=== PATIENT | female | born 1990 | race Caucasian/White ===

== ENCOUNTER 2022-10-11 01:15 | Inpatient (IN) | payer MEDICAID ==
[~2022-10-11] VITALS: Ht 160 cm; Wt 157.9 kg
[2022-10-11 02:23] LABS: BASOPHILS % (AUTO) 0 % (0-10); EOSINOPHILS # (AUTO) 0.2 10^3/uL (0.0-0.3); EOSINOPHILS % (AUTO) 3 % (0-10); HEMATOCRIT 46 % (35-52); HEMOGLOBIN 14.8 g/dL (11.5-16.0); LYMPHOCYTES # (AUTO) 1.2 10^3/uL (1.0-4.0); LYMPHOCYTES % (AUTO) 17 % (12-44); MEAN CORPUSCULAR HEMOGLOBIN 28 pg (25-34); MEAN CORPUSCULAR HGB CONC 32 g/dL (32-36); MEAN CORPUSCULAR VOLUME 88 fL (80-99); MEAN PLATELET VOLUME 11.6 fL (9.0-12.2); MONOCYTES # (AUTO) 0.6 10^3/uL (0.0-1.0); MONOCYTES % (AUTO) 8 % (0-12); NEUTROPHILS # (AUTO) 5.1 10^3/uL (1.8-7.8); NEUTROPHILS % (AUTO) 71 % (42-75); PLATELET COUNT 184 10^3/uL (130-400); WHITE BLOOD COUNT 7.2 10^3/uL (4.3-11.0)
[2022-10-11 02:23] LABS: BILIRUBIN,URINE NEGATIVE (NEGATIVE); CLARITY,URINE CLEAR; COLOR,URINE YELLOW; GLUCOSE, URINE (UA) 3+ (NEGATIVE); KETONES,URINE NEGATIVE (NEGATIVE); LEUKOCYTE ESTERASE ,URINE NEGATIVE (NEGATIVE); NITRITE,URINE NEGATIVE (NEGATIVE); PH,URINE 5.5 (5-9); PROTEIN,URINE NEGATIVE (NEGATIVE)
[2022-10-11 02:35] LABS: PROTHROMBIN TIME PATIENT 13.5 SEC (12.2-14.7)
[2022-10-11 02:36] LABS: POTASSIUM 4.2 MMOL/L (3.6-5.0)
[2022-10-11 02:37] LABS: BACTERIA,URINE NEGATIVE /HPF; RBC,URINE 0-2 /HPF; SQUAMOUS EPITHELIAL CELL,UR 0-2 /HPF
[2022-10-11 02:37] LABS: CALCIUM 9.6 MG/DL (8.5-10.1)
[2022-10-11 02:38] LABS: YEAST,URINE FEW /HPF
[2022-10-11 02:38] LABS: TOTAL PROTEIN 7.5 GM/DL (6.4-8.2)
[2022-10-11 02:40] LABS: BILIRUBIN,TOTAL 0.3 MG/DL (0.1-1.0)
[2022-10-11 02:42] LABS: CREATININE SERUM 1.08 MG/DL (0.60-1.30)
[2022-10-11] MEDS ORDERED: inSUlin (REGULAR) HUMAN 1 UNIT/0.01 ML (CHARGE PER UNIT) IV ONE (02:45)
[2022-10-11 02:53] LABS: ERYTHROCYTE SEDIMENTATION RATE 9 MM/HR (0-20)
[2022-10-11 03:05] LABS: MAGNESIUM 2.1 MG/DL (1.6-2.4)
[2022-10-11] MEDS: NS IV 1000 ML 1,000 ML IV SCH ×5 (04:00→16:02)
--- NOTE | 2022-10-11 04:06 | ED GI ---
General Chief Complaint: Abdominal/GI Problems Stated Complaint: RECTAL BLEEDING Source of Information: Patient (SOMEWHAT LIMITED HISTORIAN) History of Present Illness Date Seen by Provider: Oct 11, 2022 Time Seen by Provider: 01:50 Initial Comments PT ARRIVES VIA POV FROM HOME PT STATES SHE HAS BEEN HAVING DIARRHEA FOR THE LAST 2-3 WEEKS, WITH AT LEAST 3-4 EPISODES A DAY TONIGHT, SHE HAD 2 EPISODES OF BLOODY DIARRHEA--BRIGHT RED BLOOD MIXED WITH DIARRHEA STOOL SHE DID HAVE SOME NAUSEA AND VOMITED X 1 TONIGHT. IS NOT NAUSEATED NOW, AND HAS NOT HAD NAUSEA OR VOMITING PRIOR TO TONIGHT PT C/O FEELING LIKE HER ABDOMEN IS BLOATED, BUT HAS NOT BEEN HAVING ABDOMINAL PAIN NO FEVER/SWEATS/CHILLS SHE ALSO C/O URINARY INCONTINENCE--DESCRIBES STRESS INCONTINENCE, AND HAS BURNING IN HER GENITAL AREA, WHICH SHE BELIEVES IS DUE TO THIS SHE HAS CONTINUED TO EAT AND DRINK USUAL SHE IS NOT ON ASPIRIN OR BLOOD THINNERS SHE TAKES 4 NAPROXEN A DAY FOR "BAD TEETH" SHE SMOKES 1 1/2 PPD, DENIES VAPING, DENIES ETOH, DENIES DRUG USE SHE HAS HAD TONSILS REMOVED, NO OTHER SURGERIES SHE DENIES ANY MEDICAL PROBLEMS, BUT HAS NOT BEEN TO A DR IN YEARS, AND DOES NOT HAVE A DR. LMP 09/16/22. NORMAL. NO CONTROL PCP: NONE Allergies and Home Medications Allergies Coded Allergies: No Known Drug Allergies (Unverified , 10/11/22) Patient Home Medication List Home Medication List Reviewed: Yes Review of Systems Review of Systems Constitutional: no symptoms reported; No chills, No diaphoresis, No dizziness, No fever EENTM: See HPI, Other ("BAD TEETH") Respiratory: No Symptoms Reported; Denies Cough, Denies Shortness of Air Cardiovascular: No Symptoms Reported; Denies Chest Pain Gastrointestinal: See HPI, Diarrhea, Nausea; Denies Poor Appetite, Denies Poor Fluid Intake; Rectal Bleeding, Vomiting Genitourinary: See HPI, Frequency, Incontinence Musculoskeletal: no symptoms reported Skin: no symptoms reported Psychiatric/Neurological: No Symptoms Reported Endocrine: Increased Thrist, Increased Urine Hematologic/Lymphatic: See HPI Past Iralcot-Rvlflw-Tjmlll Hx Patient Social History Tobacco Use?: Yes Tobacco type used: Cigarettes Smoking Status: Current Everyday Smoker Smokeless Tobacco Frequency: Current Everyday User Use of E-Cig and/or Vaping dev: No Substance use?: No Alcohol Use?: No Past Medical History Surgeries: Yes Tonsillectomy Respiratory: No Cardiac: No Neurological: No Reproductive Disorders: No Genitourinary: No Gastrointestinal: No Musculoskeletal: No Endocrine: Yes (MORBID OBESITY) HEENT: Yes ("BAD TEETH") Cancer: No Psychosocial: No Integumentary: No Blood Disorders: No Family Medical History SOCIAL HISTORY: -SMOKES 1 1/2 PPD -DENIES VAPING -DENIES ETOH USE -DENIES DRUG USE Physical Exam Vital Signs Vital Signs - First Documented 10/11/22 10/11/22 01:43 04:00 Temp 37.1 Pulse 94 Resp 14 B/P (MAP) 141/100 (114) Pulse Ox 95 O2 Delivery Room Air O2 Flow Rate 2.00 Capillary Refill : Height/Weight/BMI Height: '" Weight: lbs. oz. kg; BMI Method: General Appearance: WD/WN, no apparent distress, obese (MORBIDLY OBESE. MAL ODOROUS, COVERED IN ANIMAL HAIR AND REEKS OF CIGARETTES. ) HEENT: PERRL/EOMI, other (POOR DENTITION) Neck: normal inspection Respiratory: normal breath sounds, no respiratory distress, no accessory muscle use Cardiovascular: regular rate, rhythm, no murmur Gastrointestinal: normal bowel sounds, non tender, soft, other (LOWER ASPECT OF ABDOMEN AND PANNUS WITH DIFFUSE ERYTHEMA, WARMTH AND INDURATION. THERE ARE MULTIPLE SORES/SCABS/SCARS TO ABDOMEN, ALSO TO MONS PUBIS AREA. ) Genital/Rectal: other (THERE IS ERYTHEMA WITH ADHERENT WHITE DISCHARGE IN GENITAL AREA AND IN SKIN FOLDS--C/W CANDIDIASIS) Extremities: normal range of motion, non-tender, normal capillary refill, other (MULTIPLE SORES/SCARS/SCABS TO ARMS. ) Back: no CVA tenderness Neurologic/Psychiatric: metal tube cutter II-XII nml as tested, no motor/sensory deficits, alert, normal mood/affect, oriented x 3 Skin: normal color, warm/dry, other (SKIN CHANGES NOTED ABOVE. ) Focused Exam Sepsis Stage: Ruled Out (DOES NOT MEET CRITERIA) Possible Source: Other (GI OR SKIN/SOFT TISSUE) Lactate Level 10/11/22 06:40: Lactic Acid Level 1.42 Time of Focused Exam: 04:30 Respiratory: Normal Breath Sounds, No Accessory Muscle Use, No Respiratory Distress Cardiovascular: Regular Rate, Rhythm, No Murmur Capillary Refill: Less Than 3 Seconds Skin: normal color, warm/dry Lactic Acid Level Laboratory Tests Test 10/11/22 06:40 Lactic Acid Level 1.42 MMOL/L (0.50-2.00) Within 3hrs of presentation: Admin fluids, Admin ABX, Blood cultures prior to ABX's, Focus exam, Lactate level Progress/Results/Core Measures Results/Orders Lab Results Laboratory Tests Test 10/11/22 02:13 10/11/22 02:15 10/11/22 05:17 10/11/22 05:46 Range/Units White Blood Count 7.2 4.3-11.0 10^3/uL Red Blood Count 5.22 H 3.80-5.11 10^6/uL Hemoglobin 14.8 11.5-16.0 g/dL Hematocrit 46 35-52 % Mean Corpuscular Volume 88 80-99 fL Mean Corpuscular Hemoglobin 28 25-34 pg Mean Corpuscular Hemoglobin Concent 32 32-36 g/dL Red Cell Distribution Width 13.2 10.0-14.5 % Platelet Count 184 130-400 10^3/uL Mean Platelet Volume 11.6 9.0-12.2 fL Immature Granulocyte % (Auto) 1 % Neutrophils (%) (Auto) 71 42-75 % Lymphocytes (%) (Auto) 17 12-44 % Monocytes (%) (Auto) 8 0-12 % Eosinophils (%) (Auto) 3 0-10 % Basophils (%) (Auto) 0 0-10 % Neutrophils # (Auto) 5.1 1.8-7.8 10^3/uL Lymphocytes # (Auto) 1.2 1.0-4.0 10^3/uL Monocytes # (Auto) 0.6 0.0-1.0 10^3/uL Eosinophils # (Auto) 0.2 0.0-0.3 10^3/uL Basophils # (Auto) 0.0 0.0-0.1 10^3/uL Immature Granulocyte # (Auto) 0.1 0.0-0.1 10^3/uL Erythrocyte Sedimentation Rate 9 0-20 MM/HR Prothrombin Time 13.5 12.2-14.7 SEC INR Comment 1.0 0.8-1.4 Activated Partial Thromboplast Time 31 24-35 SEC Sodium Level 134 L 135-145 MMOL/L Potassium Level 4.2 3.6-5.0 MMOL/L Chloride Level 96 L 98-107 MMOL/L Carbon Dioxide Level 21 21-32 MMOL/L Anion Gap 17 H 5-14 MMOL/L Blood Urea Nitrogen 4 L 7-18 MG/DL Creatinine 1.08 0.60-1.30 MG/DL Estimat Glomerular Filtration Rate 70 BUN/Creatinine Ratio 4 Glucose Level 751 *H 70-105 MG/DL Calcium Level 9.6 8.5-10.1 MG/DL Corrected Calcium 9.6 8.5-10.1 MG/DL Magnesium Level 2.1 1.6-2.4 MG/DL Total Bilirubin 0.3 0.1-1.0 MG/DL Aspartate Amino Transf (AST/SGOT) 53 H 5-34 U/L Alanine Aminotransferase (ALT/SGPT) 80 H 0-55 U/L Alkaline Phosphatase 114 40-136 U/L C-Reactive Protein High Sensitivity 2.40 H 0.00-0.50 MG/DL Total Protein 7.5 6.4-8.2 GM/DL Albumin 4.0 3.2-4.5 GM/DL Beta-Hydroxybutyrate (Chem panel) 0.29 H 0.00-0.27 MMOL/L Serum Test, Qualitative NEGATIVE NEGATIVE Urine Color YELLOW Urine Clarity CLEAR Urine pH 5.5 5-9 Urine Specific [place] <=1.005 1.016-1.022 Urine Protein NEGATIVE NEGATIVE Urine Glucose (UA) 3+ H NEGATIVE Urine Ketones NEGATIVE NEGATIVE Urine Nitrite NEGATIVE NEGATIVE Urine Bilirubin NEGATIVE NEGATIVE Urine Urobilinogen 0.2 < = 1.0 MG/DL Urine Leukocyte Esterase NEGATIVE NEGATIVE Urine RBC (Auto) TRACE-I H NEGATIVE Urine RBC 0-2 /HPF Urine WBC 2-5 /HPF Urine Squamous Epithelial Cells 0-2 /HPF Urine Crystals NONE /LPF Urine Bacteria NEGATIVE /HPF Urine Casts NONE /LPF Urine Mucus NEGATIVE /LPF Urine Yeast FEW H /HPF Urine Culture Indicated YES Blood Gas Puncture Site LR Blood Gas Patient Temperature UNK Arterial Blood pH 7.43 7.37-7.43 Arterial Blood Partial Pressure CO2 41 35-45 MMHG Arterial Blood Partial Pressure O2 130 H 79-93 MMHG Arterial Blood HCO3 27 23-27 MMOL/L Arterial Blood Total CO2 27.8 21.0-31.0 MMOL/L Arterial Blood Oxygen Saturation 100 94-100 % Arterial Blood Base Excess 2.6 H -2.5-2.5 MMOL/L Korey Test YES-POS Blood Gas Ventilator Setting NO Blood Gas Inspired Oxygen ROOM AIR Glucometer 389 H 70-110 MG/DL Test 10/11/22 06:40 Range/Units Lactic Acid Level 1.42 0.50-2.00 MMOL/L My Orders Orders - ANTONIA GUPTA DO Ed Iv/Invasive Line Start (10/11/22 01:51) Monitor-Rhythm Ecg Trace Only (10/11/22 01:51) Cbc With Automated Diff (10/11/22 01:51) Comprehensive Metabolic Panel (10/11/22 01:51) Hs C Reactive Protein (10/11/22 01:51) Hcg,Qualitative Serum (10/11/22 01:51) Protime With Inr (10/11/22 01:51) Partial Thromboplastin Time (10/11/22 01:51) Ua Culture If Indicated (10/11/22 01:51) Erythrocyte Sedimentation Rate (10/11/22 01:51) Ed Iv/Invasive Line Start (10/11/22 01:51) Urine Culture (10/11/22 02:15) Magnesium (10/11/22 02:45) Ed Iv/Invasive Line Start (10/11/22 02:45) Ns Iv 1000 Ml (Sodium Chloride 0.9%) (10/11/22 02:45) Insulin (Regular) Human (Novolin R (Per (10/11/22 02:45) Beta Hydroxybutyrate (10/11/22 02:45) Hemoglobin A1c (10/11/22 02:45) Ct Abdomen/Pelvis Wo (10/11/22 01:51) Piperacillin Sodium/Tazobactam (Zosyn Vi (10/11/22 04:45) Vancomycin Injection (Vancomycin Injecti (10/11/22 04:45) Accucheck Stat ONCE (10/11/22 04:47) Ed Admission (Communication) (10/11/22 04:57) Arterial Blood Gas (10/11/22 05:17) Arterial Blood Draw - Obtain (10/11/22 05:15) Acetaminophen Tablet (Tylenol Tablet) (10/11/22 06:15) Blood Culture (10/11/22 06:36) Lactic Acid Analyzer (10/11/22 06:36) Medications Given in ED Current Medications Medications Dose Ordered Sig/Gardenia Route Start Time Stop Time Status Last Admin Dose Admin Acetaminophen 1,000 mg ONCE ONCE PO 10/11/22 06:15 10/11/22 06:16 DC 10/11/22 06:42 1,000 MG Insulin Human Regular 10 unit ONCE ONCE IV 10/11/22 02:45 10/11/22 02:47 DC 10/11/22 04:00 10 UNIT Piperacillin Sod/ Tazobactam Sod 4.5 gm/Sodium Chloride 100 ml @ 200 mls/hr ONCE ONCE IV 10/11/22 04:45 10/11/22 05:14 DC 10/11/22 05:23 200 MLS/HR Vital Signs/I&O 10/11/22 10/11/22 10/11/22 01:43 04:00 07:40 Temp 37.1 Pulse 94 87 Resp 14 24 B/P (MAP) 141/100 (114) 151/102 Pulse Ox 95 93 92 O2 Delivery Room Air Nasal Cannula O2 Flow Rate 2.00 Progress Progress Note : Progress Note PT GIVEN: -IV FLUIDS -IV INSULIN -ZOSYN + VANCOMYCIN FOR PANNICULITIS/ABDOMINAL WALL CELLULITIS -TYLENOL FOR C/O DENTAL PAIN PT HAD NO COMPLAINTS OF NAUSEA OR ABDOMINAL PAIN DURING ER STAY AND HAD NO BM'S DURING ER STAY. PT NOTED TO HAVE O2 SATS 88-89% WHILE AWAKE AND SITTING UP. PT HAS NO RESPIRATORY COMPLAINTS PLACED ON O2 AT 2L/NC AND O2 SATS UP TO MID 90'S. ACCUCHECK 389 AFTER 3 LITERS OF FLUIDS AND 10 UNITS OF INSULIN. NO DETERIORATION IN PT'S CONDITION DURING ER STAY. BP REMAINED ELEVATED IN 150'S/100'S. HR REMAINED IN 90'S NO FEVER AT ANY TIME. DISCUSSED TEST RESULTS, NEED FOR ADMIT AND PT IS AGREEABLE TO PLAN. NO PRIOR VISITS HERE. Diagnostic Imaging Comments CT ABDOMEN/PELVIS--PER [facility] VIA FAX AT [id number] -NO EVIDENCE FOR BOWEL OBSTRUCTION -LIMITED EVALUATION OF BOWEL MUCOSA DUE TO LACK OF CONTRAST, BUT NO FOCAL ASYMMETRY SUGGESTED -NO SIGNIFICANT DIVERTICULITIS -NO FREE AIR -NORMAL CALIBER APPENDIX -HEPATOMEGALY WITH HEPATIC STEATOSIS. Reviewed: Reviewed by Me Departure Communication (Admissions) 8150--SPOKE WITH DR. DECKER, HOSPITALIST, ACCEPTS PT FOR ADMIT. SHE WILL DO ADMIT ORDERS. WILL HAVE TO BOARD PT IN ER UNTIL ICU BED IS AVAILABLE AFTER 0700. Impression Primary Impression: NEW DIAGNOSIS OF DIABETES Additional Impressions: Vulvovaginal candidiasis REPORTED BLOODY DIARRHEA PANNICULITIS / ABDOMINAL WALL CELLULITIS Obesity hypoventilation syndrome HTN NEW DIAGNOSIS Disposition: ADMITTED INPATIENT Condition: Stable Admissions Decision to Admit Reason: Admit from ER (General) Decision to Admit/Date: Oct 11, 2022 Time/Decision to Admit Time: 04:40 Departure-Patient Inst. Referrals: NO,LOCAL PHYSICIAN (PCP/Family) Primary Care Physician ANTONIA GUPTA DO Oct 11, 2022 04:06
[2022-10-11] MEDS ORDERED: PIPERACILLIN SODIUM/TAZOBACTAM 4.5 GM in NS (IVPB) 100 ML IV ONE (04:45)
[2022-10-11 05:25] LABS: ABG BASE EXCESS 2.6 MMOL/L (-2.5-2.5); ABG OXYGEN SATURATION 100 % (94-100); ABG PCO2 41 MMHG (35-45); ABG PH 7.43 (7.37-7.43); ABG PO2 130 MMHG (79-93); ABG TCO2 27.8 MMOL/L (21.0-31.0)
[2022-10-11 05:26] LABS: ALLENS TEST YES-POS; INSPIRED O2 ROOM AIR; VENTILATOR NO
[2022-10-11] MEDS ORDERED: ACETAMINOPHEN 500 MG TAB (TYLENOL) PO ONE (06:15)
[2022-10-11] MEDS: VANCOMYCIN INJECTION 1,000 MG in NS (IVPB) 250 ML IV SCH ×2 (06:42→08:04)
--- NOTE | 2022-10-11 07:33 | Diagnostic Imaging Report ---
PROCEDURE: CT abdomen and pelvis without contrast. TECHNIQUE: Multiple contiguous axial images were obtained through the abdomen and pelvis without the use of intravenous contrast. Auto Exposure Controls were utilized during the CT exam to meet ALARA standards for radiation dose reduction. INDICATION: Diarrhea. Bloody stools. COMPARISON: None. FINDINGS: Lung bases are clear. Hepatomegaly and diffuse fatty infiltration of the liver. Borderline splenomegaly. The gallbladder, pancreas, adrenals, kidneys, collecting systems, bladder and appendix are negative on this noncontrast exam. The reproductive structures are grossly unremarkable. No free intraperitoneal air or fluid. No lymphadenopathy. No evidence of bowel obstruction. No acute osseous findings. IMPRESSION: 1. No acute CT findings in the abdomen or pelvis on this noncontrast exam. 2. Hepatomegaly and hepatic steatosis. Borderline splenomegaly. Agree with preliminary interpretation. Dictated by: Dictated on workstation # [id number]
[2022-10-11] MEDS ORDERED: diphenhydrAMINE 50 MG/ML INJ (BENADRYL) IVP PRN (08:00)
[2022-10-11] MEDS ORDERED: polyethylene glycoL POWDER 17 GM (MIRALAX) PACK PO PRN (08:00)
[2022-10-11] MEDS ORDERED: ANTACID SUSP 30 ML UDC (MYLANTA) PO PRN (08:00)
[2022-10-11] MEDS ORDERED: NS IV 1000 ML 1,000 ML IV SCH (08:00)
[2022-10-11] MEDS ORDERED: CALCIUM CARBONATE 500 MG (TUMS) TAB.CHEW PO PRN (08:00)
[2022-10-11] MEDS ORDERED: ACETAMINOPHEN 325 MG TABLET PO PRN (08:00)
[2022-10-11] MEDS ORDERED: HYDROmorphone 2 MG/ML VIAL (DILAUDID) IV PRN (08:00)
[2022-10-11] MEDS ORDERED: BISACODYL 10 MG SUPP (DULCOLAX) PR PRN (08:00)
[2022-10-11] MEDS ORDERED: MELATONIN 3 MG TABLET PO PRN (08:00)
[2022-10-11] MEDS ORDERED: LACTULOSE SYRUP 10GM/15ML (ENULOSE) 30ML UDC PO PRN (08:00)
[2022-10-11] MEDS ORDERED: NALOXONE 0.4 MG/ML 1 ML (NARCAN) VIAL IV PRN (08:00)
[2022-10-11] MEDS ORDERED: diphenhydrAMINE 25 MG TAB (BENADRYL) PO PRN (08:00)
[2022-10-11] MEDS ORDERED: VANCOMYCIN INJECTION 0.1 MG in NS (IVPB) 250 ML IV SCH (08:00)
[2022-10-11] MEDS ORDERED: MILK OF MAGNESIA 400 MG/5 ML 30 ML UDC PO PRN (08:00)
[2022-10-11] MEDS ORDERED: ONDANSETRON 4 MG (ZOFRAN) ORAL DISSOLVE TAB PO PRN (08:00)
[2022-10-11] MEDS ORDERED: ONDANSETRON 4 MG/2 ML (SDV) Z0FRAN IV PRN (08:00)
[2022-10-11 08:22] VITALS: BP 151/102
[2022-10-11] MEDS ORDERED: RT-ALBUTEROL SULF 2.5 MG/3 ML PRE-MIX VIAL INH PRN (08:30)
--- NOTE | 2022-10-11 08:58 | Tele-ICU Consult ---
History of Present Illness History of Present Illness Date Seen by Provider: Oct 11, 2022 Time Seen by Provider: 08:56 History of Present Illness (Tele-ICU Physician , consultation as per request of PCP Service provided via interactive audio and video telecommunications E-CARE system to a patient admitted to ICU bed in [facility]. Available chart/ vitals / labs / Images reviewed H&P is from ER notes Patient's information available about PMH, Shx, Fhx allergy reviewed inEMR. ROS as per chart and RN report Now in ICU, hemodynamically stable Video assessment done using teleICU camera, rest of exam as per RN Discussed with RN. Hospital course: 31 y/o female with newly diagnosed DM and HTN presented with lower gi bleeding A/P BRBPR- bloody diarrhea at home - possible GIB ( in face of NSAIDS use ) - CTabd/pelvis - no acute findings - Hb stable 14 , not hypotensive Possible dental problem - on NSAIDS OTC for oral pain ID : -- febrile, no leukocytosis - ? dental - UA clear PANNICULITIS/ABDOMINAL WALL CELLULITIS - ari Guerrero started on ER -3L NS bolus in ER - vitals stable New dx DM - BS control ( BS 751 on admission , decreased to 300+ now -on insulin gttt - AG 17 , bicarb 21 New Dx of HTN - follow Hypoxia on presentation ( 88% on RA ) - resolved Obesity Lines : periph , (Central Line Necessity Reviewed) Reyes: OG: Nutrition: Analgesia: Anxiety/ delirium VTE Prophylaxis: scd , love tomorrow if no active bleed Stress Ulcer Prophylaxis: ppi Plans in collaboration with bedside consultants and IM MDs. Discussed with RN to reach out if any questions or concerns A total of 35 minutes of critical care time was devoted to this patient today, required to treat and/or prevent further deterioration of critical care condition ( as above ) . I am remotely monitoring this patient from another state. I am unable to do the bedside exam, and history/physical and pertinent information is taken from other notes in the computer and bedside staff. . Allergies and Home Medications Allergies Coded Allergies: No Known Drug Allergies (Unverified , 10/11/22) Past Medical/Social/Family Hx Patient Social History Tobacco Use?: Yes Tobacco type used: Cigarettes Smoking Status: Current Everyday Smoker Smokeless Tobacco Frequency: Never a User Use of E-Cig and/or Vaping dev: No Substance use?: No Alcohol Use?: No Pt stated abuse/neglect: No Immunizations Up To Date Influenza Vaccine Up-to-Date: No; Not Current First/Initial COVID19 Vaccinat: 2020 Second COVID19 Vaccination Elvis: 2020 Current Status Advance Directives: No Communicates: Verbally Primary Language: [place] Preferred Spoken Language: [place] Is interpretation needed?: No Implanted or Applied Medical D: None Family Medical History Family Hx: SOCIAL HISTORY: -SMOKES 1 1/2 PPD -DENIES VAPING -DENIES ETOH USE -DENIES DRUG USE Review of Systems Constitutional: see HPI Focused Exam Lactate Level 10/11/22 06:40: Lactic Acid Level 1.42 Height, Weight, BMI Height: '" Weight: lbs. oz. kg; 59.76 BMI Method: Time of Focused Exam: 04:30 Lactic Acid Level Laboratory Tests Test 10/11/22 06:40 Lactic Acid Level 1.42 MMOL/L (0.50-2.00) Exam Exam Patient acknowledged, consented, and participated in this virtual visit which was conducted using real time audio/video Vital Signs Date Time Temp Pulse Resp B/P (MAP) Pulse Ox O2 Delivery O2 Flow Rate FiO2 10/11/22 08:22 37.2 87 92 10/11/22 08:00 37.2 10/11/22 07:40 87 24 151/102 92 10/11/22 04:00 93 Nasal Cannula 2.00 10/11/22 01:43 37.1 94 14 141/100 (114) 95 Room Air I & O 10/11/22 07:00 Intake Total 1100 ml Balance 1100 ml Height & Weight Height: '" Weight: lbs. oz. kg; 59.76 BMI Method: General Appearance: No Apparent Distress, Other Respiratory: Normal Breath Sounds, No Accessory Muscle Use, No Respiratory Distress Cardiovascular: Regular Rate, Rhythm, No Murmur Capillary Refill: Less Than 3 Seconds Gastrointestinal: normal bowel sounds, non tender, soft, other (LOWER ASPECT OF ABDOMEN AND PANNUS WITH DIFFUSE ERYTHEMA, WARMTH AND INDURATION. THERE ARE M ULTIPLE SORES/SCABS/SCARS TO ABDOMEN, ALSO TO MONS PUBIS AREA. ) Results Lab Laboratory Tests 10/11/22 02:13 Assessment/Plan Assessment/Plan 1 JOHNSON REILLY MD Oct 11, 2022 08:58
[2022-10-11 09:08] LABS: CALCIUM 8.5 MG/DL (8.5-10.1); CREATININE SERUM 0.76 MG/DL (0.60-1.30); POTASSIUM 3.5 MMOL/L (3.6-5.0)
[2022-10-11] MEDS: DOCUSATE SODIUM 100 MG (COLACE) CAP PO SCH ×2 (09:48→20:02)
[2022-10-11] MEDS: SENNOSIDES 8.6 MG (SENOKOT) TAB PO SCH ×2 (09:49→20:03)
[2022-10-11] MEDS: PANTOPRAZOLE 40 MG (PROTONIX) VIAL IV SCH (11:07)
[2022-10-11] MEDS ORDERED: hydrALAZINE (APESOLINE) 20 MG/ML VIAL IV PRN (11:30)
[2022-10-11] MEDS ORDERED: lisINopril 20 MG (PRINIVIL) TABLET PO NR (11:30)
[2022-10-11] MEDS ORDERED: [UNRECOGNIZED DRUG - CODE] PO (12:47)
[2022-10-11] MEDS ORDERED: NAPR220C61 PO ×2 (12:47)
[2022-10-11] MEDS ORDERED: MULT-1018 PO (12:47)
[2022-10-11] MEDS ORDERED: METH1TAB83 PO (12:47)
[2022-10-11 13:39] LABS: HEMOGLOBIN 14.2 g/dL (11.5-16.0)
--- NOTE | 2022-10-11 13:46 | History & Physical-Hospitalist ---
CARISSAHUBER 10/11/22 1346: History of Present Illness HPI/Chief Complaint Reji Carey is a 31yo female presenting due to bloody stools. Pt states that this started yesterday about 3-4x. Pt claims this has occurred before during which about 5yrs ago. Pt described her defecation as bright red blood w/o any associated tenderness between the rectum and vagina that she claims is due to aggressive washing. Pt notices sugar and Urdu food worsens symptoms, but denies anything that improves symptoms. Pt states she has never had a colonoscopy or a family history of colon cancer. Pt denies Fever, Chills, abdominal pain, chest pain, and N/V. Date Seen 10/11/22 Time Seen by a Provider: 11:38 Attending Physician No,Local Physician PCP Admitting Physician: Violette Medrano DO Attending Physician: Gui Ireland MD Referring Physician Date of Admission Oct 11, 2022 at 07:45 Home Medications & Allergies Home Medications Reviewed patient Home Medication Reconciliation performed by pharmacy medication reconciliations alarm installation technician and/or nursing. Patients Allergies have been reviewed. Allergies Allergies Coded Allergies No Known Drug Allergies (Unverified10/11/22) Past Blwmomd-Gudcxg-Tnpgob Hx Patient Social History Tobacco Use?: Yes Tobacco type used: Cigarettes Smoking Status: Current Everyday Smoker Smokeless Tobacco Frequency: Never a User Use of E-Cig and/or Vaping dev: No Substance use?: No Alcohol Use?: No Pt feels they are or have been: No Immunizations Up To Date First/Initial COVID19 Vaccinat: 2020 Second COVID19 Vaccination Elvis: 2020 Current Status Advance Directives: No Communicates: Verbally Primary Language: Indonesian Preferred Spoken Language: Indonesian Is interpretation needed?: No Implanted or Applied Medical D: None Past Medical History Surgeries: Tonsillectomy Blood Disorders: No Family Medical History SOCIAL HISTORY: -SMOKES 1 1/2 PPD -DENIES VAPING -DENIES ETOH USE -DENIES DRUG USE Review of Systems Constitutional: no symptoms reported; No chills, No fever Respiratory: No cough, No phlegm Cardiovascular: No chest pain Gastrointestinal: No abdominal pain; diarrhea (Associated with increased intake of Sugar and Fatty Foods ); No nausea, No vomiting Physical Exam Physical Exam Vital Signs Vital Signs - First Documented 10/11/22 10/11/22 01:43 04:00 Temp 37.1 Pulse 94 Resp 14 B/P (MAP) 141/100 (114) Pulse Ox 95 O2 Delivery Room Air O2 Flow Rate 2.00 Capillary Refill : Less Than 3 Seconds Height, Weight, BMI Height: '" Weight: lbs. oz. kg; 59.76 BMI Method: General Appearance: No Apparent Distress Respiratory: Chest Non Tender, Lungs Clear, Normal Breath Sounds Cardiovascular: Regular Rate, Rhythm, No Murmur, Normal Peripheral Pulses Gastrointestinal: Normal Bowel Sounds, Non Tender, Soft Neurologic/Psychiatric: Alert, Oriented x3, Normal Mood/Affect Skin: Normal Color, Warm/Dry Results Results/Procedures Labs Laboratory Tests 10/11/22 02:13 10/11/22 08:30 Patient resulted labs reviewed. Imaging Date of Exam:10/11/22 CT ABDOMEN/PELVIS WO PROCEDURE: CT abdomen and pelvis without contrast. TECHNIQUE: Multiple contiguous axial images were obtained through the abdomen and pelvis without the use of intravenous contrast. Auto Exposure Controls were utilized during the CT exam to meet ALARA standards for radiation dose reduction. INDICATION: Diarrhea. Bloody stools. COMPARISON: None. FINDINGS: Lung bases are clear. Hepatomegaly and diffuse fatty infiltration of the liver. Borderline splenomegaly. The gallbladder, pancreas, adrenals, kidneys, collecting systems, bladder and appendix are negative on this noncontrast exam. The reproductive structures are grossly unremarkable. No free intraperitoneal air or fluid. No lymphadenopathy. No evidence of bowel obstruction. No acute osseous findings. IMPRESSION: 1. No acute CT findings in the abdomen or pelvis on this noncontrast exam. 2. Hepatomegaly and hepatic steatosis. Borderline splenomegaly. Agree with preliminary interpretation. Assessment/Plan Assessment and Plan Diabetes Mellitus Serum Glucose: 751 UA - Glycosuria Human Insulin Drip; Will transition off Drip to Insulin Detemir and Sliding Scale Diabetes Education Hematochezia Secondary to Hemorrhoids Active/Chronic bleed unlikely due to normal Hgb Continue to monitor HTN Start Lisinopril Continue Monitoring Blood Pressure; Hydralazine PRN NAFLD Obesity Discussed Options for Primary Care Provides in Area Counseled about f/u with PCP in future after discharge Once pt is stabilized and off Insulin Drip pt is okay for Floor transfer. Clinical Quality Measures DVT/VTE Risk/Contraindication: Contraindications-Pharm: Other *list below* Other: bloody diarrhea GUI IRELAND MD 10/11/22 1854: History of Present Illness Source: patient Exam Limitations: no limitations Time Seen by a Provider: 11:25 Past Kyqbfea-Jczjnx-Uqebar Hx Family Medical History No Pertinent Family Hx Physical Exam Physical Exam General Appearance: No Apparent Distress, Obese HEENT: PERRL/EOMI, Pharynx Normal Neck: Normal Inspection, Supple Respiratory: Lungs Clear, No Respiratory Distress Cardiovascular: Regular Rate, Rhythm, No Murmur Gastrointestinal: Normal Bowel Sounds, Non Tender, Soft Extremity: Normal Inspection, Pedal Edema Neurologic/Psychiatric: Alert, Oriented x3, Normal Mood/Affect Skin: Warm/Dry, Erythema Results Results/Procedures Imaging: Reviewed Imaging Report Assessment/Plan Admission Diagnosis T2DM with HHS Admission Status: Inpatient Order (span 2 midnights) Reason for Inpatient Admission: IV insulin Assessment and Plan Presented due to rectal bleeding, appears to be due to hemorrhoids. Also found to have new onset T2DM with HHS. Started on insulin gtt, improved. Begin Levemir and transition off insulin gtt. Also found to be hypertensive, begin Lisinopril. Does not have primary care, plans to establish with [facility]veri at [facility]. Transfer to medical floor once stable off drip. Diagnosis/Problems Diagnosis/Problems (1) Type 2 diabetes mellitus with hyperosmolar hyperglycemic state (HHS) Status: Acute (2) Super obesity Status: Chronic (3) HTN (hypertension) Status: Acute (4) Fatty liver Status: Acute (5) Bleeding hemorrhoids Status: Acute Supervisory-Addendum Brief Verification & Attestation Participated in pt care: history, MDM, physical Personally performed: exam, history, MDM, supervision of care Care discussed with: Medical Student Procedures: n/a Results interpretation: Verified all documentation A medical student performed and documented this service in my presence. I reviewed and verified all information documented by the medical student and made modifications to such information, when appropriate. I personally performed the physical exam and medical decision making. HUBER FERRER Oct 11, 2022 13:46 GUI IRELAND MD Oct 11, 2022 18:54
[2022-10-11 13:57] LABS: CALCIUM 8.5 MG/DL (8.5-10.1); CREATININE SERUM 0.74 MG/DL (0.60-1.30); MAGNESIUM 1.7 MG/DL (1.6-2.4); POTASSIUM 3.5 MMOL/L (3.6-5.0)
[2022-10-11] MEDS ORDERED: PIPERACILLIN SODIUM/TAZOBACTAM 4.5 GM in NS (IVPB) 100 ML IV SCH (14:00)
[2022-10-11] MEDS ORDERED: inSUlin ASPART (NovoLOG) 1 UNIT/0.01 ML (CHARGE PER UNIT) ONE (17:04)
[2022-10-11] MEDS: inSUlin ASPART (NovoLOG) 1 UNIT/0.01 ML (CHARGE PER UNIT) SC SCH ×2 (17:06→22:51)
[2022-10-11] MEDS ORDERED: VANCOMYCIN 1500MG/300ML PREMIX IV SCH (19:00)
[2022-10-11] MEDS: NYSTATIN OINTMENT 30 GM TUBE TOP SCH (20:01)
[2022-10-11] MEDS ORDERED: NS IV 500 ML 500 ML IV PRN (21:00)
[2022-10-12 04:45] LABS: BASOPHILS % (AUTO) 1 % (0-10); EOSINOPHILS # (AUTO) 0.2 10^3/uL (0.0-0.3); EOSINOPHILS % (AUTO) 4 % (0-10); HEMATOCRIT 45 % (35-52); HEMOGLOBIN 14.1 g/dL (11.5-16.0); LYMPHOCYTES # (AUTO) 1.3 10^3/uL (1.0-4.0); LYMPHOCYTES % (AUTO) 20 % (12-44); MEAN CORPUSCULAR HEMOGLOBIN 28 pg (25-34); MEAN CORPUSCULAR HGB CONC 32 g/dL (32-36); MEAN CORPUSCULAR VOLUME 89 fL (80-99); MEAN PLATELET VOLUME 11.1 fL (9.0-12.2); MONOCYTES # (AUTO) 0.6 10^3/uL (0.0-1.0); MONOCYTES % (AUTO) 10 % (0-12); NEUTROPHILS # (AUTO) 4.3 10^3/uL (1.8-7.8); NEUTROPHILS % (AUTO) 66 % (42-75); PLATELET COUNT 177 10^3/uL (130-400); WHITE BLOOD COUNT 6.5 10^3/uL (4.3-11.0)
[2022-10-12 05:00] LABS: ALBUMIN 3.7 GM/DL (3.2-4.5); POTASSIUM 4.4 MMOL/L (3.6-5.0)
[2022-10-12 05:01] LABS: CALCIUM 8.8 MG/DL (8.5-10.1)
[2022-10-12 05:02] LABS: TOTAL PROTEIN 6.6 GM/DL (6.4-8.2)
[2022-10-12 05:04] LABS: BILIRUBIN,TOTAL 0.3 MG/DL (0.1-1.0)
[2022-10-12 05:06] LABS: CREATININE SERUM 0.75 MG/DL (0.60-1.30)
[2022-10-12] MEDS: inSUlin ASPART (NovoLOG) 1 UNIT/0.01 ML (CHARGE PER UNIT) SC SCH (05:21)
[2022-10-12] MEDS ORDERED: KCL 20 MEQ TAB (K-DUR) PO SCH (06:00)
[2022-10-12] MEDS ORDERED: POTASSIUM CL 10MEQ/50ML IVPB 50 ML IV SCH (06:00)
[2022-10-12] MEDS ORDERED: MAGNESIUM 1 GM/100 ML IVPB 100 ML IV SCH (06:00)
[2022-10-12] MEDS: SENNOSIDES 8.6 MG (SENOKOT) TAB PO SCH (07:58)
[2022-10-12] MEDS: DOCUSATE SODIUM 100 MG (COLACE) CAP PO SCH (07:58)
[2022-10-12] MEDS ORDERED: inSUlin (REGULAR) HUMAN 1 UNIT/0.01 ML (CHARGE PER UNIT) IV ONE (08:00)
[2022-10-12] MEDS: NYSTATIN OINTMENT 30 GM TUBE TOP SCH (08:35)
[2022-10-12] MEDS: PANTOPRAZOLE 40 MG (PROTONIX) VIAL IV SCH (08:35)
[2022-10-12] MEDS ORDERED: lisINopril 40 MG (PRINIVIL) TABLET PO SCH (09:00)
[2022-10-12] MEDS ORDERED: METF-397 PO ×2 (10:25→11:27)
[2022-10-12] MEDS ORDERED: LISI40TA9 PO ×2 (10:25→11:27)
[2022-10-12] MEDS ORDERED: INSU100I10 SQ ×2 (10:25→11:27)
[2022-10-12] MEDS ORDERED: inSUlin ASPART (NovoLOG) 1 UNIT/0.01 ML (CHARGE PER UNIT) SC SCH (11:00)
--- NOTE | 2022-10-12 12:05 | Discharge Summary ---
HUBER FERRER 10/12/22 1205: Diagnosis/Chief Complaint Date of Admission Oct 11, 2022 at 07:45 Date of Discharge Discharge Date: Oct 12, 2022 Admission Diagnosis T2DM with HHS Primary Care No,Local Physician Discharge Diagnosis Type 2 Diabetes with Hyperosmolar Hyperglycemic State (1) Type 2 diabetes mellitus with hyperosmolar hyperglycemic state (HHS) Status: Acute (2) Super obesity Status: Chronic (3) HTN (hypertension) Status: Acute (4) Fatty liver Status: Acute (5) Bleeding hemorrhoids Status: Acute Discharge Summary Discharge Physical Exam Allergies: Coded Allergies: No Known Drug Allergies (Unverified , 10/11/22) Vitals & I&Os Vital Signs Date Time Temp Pulse Resp B/P (MAP) Pulse Ox O2 Delivery O2 Flow Rate FiO2 10/12/22 08:30 Room Air 10/12/22 08:00 93 139/88 (105) 92 2.00 10/12/22 08:00 36.1 10/12/22 05:00 15 General Appearance: No Apparent Distress Respiratory: Chest Non Tender, Lungs Clear, Normal Breath Sounds Cardiovascular: Regular Rate, Rhythm, No Murmur, Normal Peripheral Pulses Gastrointestinal: Normal Bowel Sounds, Non Tender, Soft Extremity: Normal Inspection, Non Tender, No Calf Tenderness Skin: Normal Color, Warm/Dry Neurologic/Psychiatric: Alert, Oriented x3 Hospital Course Reji Carey is a 31yo female whom presented due to bloody stools. Pt stated they started on 10/10/22 and occurred about 3-4x. Pt claims this has occurred before during which was about 5yrs ago. Pt described her defecation as bright red blood w/o any associated tenderness between the rectum and vagina that she claims is due to aggressive washing. Pt notices sugar and Vietnamese food worsens symptoms, but denies anything that improves symptoms. Pt stated she has never had a colonoscopy or a family history of colon cancer. Upon admission, Pt had elevated blood sugar around 751. Due to elevated blood sugar we immediately started fluids and an insulin drip to control her Hyperosmolar Hyperosmotic State. As patient became more stable and serum glucose declined we transitioned her from Insulin Drip to Subcutaneous Injection. Since patients hemoglobin has been stable within normal limits and having a previous episode when she was , we concluded that her acute blood per rectum if from hemorrhoids. during the hospital stay, the patients blood pressure was significantly elevated. We prescribed Lisinopril to control blood pressure. Today, 10/12/22, pt states that she is feeling better than yesterday especially after sleep, and had one bowel movement with small amount of blood. Pt's labs seem stable today when compared to yesterday. Pt will be discharged today with a prescription order for Metformin, Insulin, and Lisinopril. Discussed Preparation H for Hemorrhoids. Discussed with Patient about f/u with a primary care provider for long-term care and control of chronic conditions. HHS Secondary to Type II Diabetes Improved Serum Glucose Elevated Continue Subcutaneous Insulin and Prescribe Metformin F/u care with PCP Hematochezia Secondary to Hemorrhoids Continue to Monitor at Home; Watch for signs of Anemia Hgb Stable since being admitted in Hospital Discussed Preparation H for Hemorrhoids HTN Continue Lisinopril NFALD Obesity Continue to watch Liver Enzymes F/u with PCP Labs (last 24 hrs) Laboratory Tests 10/11/22 12:10: Glucometer 281H 10/11/22 12:55: Glucometer 252H 10/11/22 13:31: Hemoglobin 14.2, Hematocrit 43, Sodium Level 139, Potassium Level 3.5L, Chloride Level 106, Carbon Dioxide Level 26, Anion Gap 7, Blood Urea Nitrogen 5L, Creatinine 0.74, Estimat Glomerular Filtration Rate 111, BUN/Creatinine Ratio 7, Glucose Level 256H, Calcium Level 8.5, Magnesium Level 1.7 10/11/22 14:06: Glucometer 222H 10/11/22 14:57: Glucometer 236H 10/11/22 16:05: Glucometer 153H 10/11/22 16:59: Glucometer 164H 10/11/22 22:50: Glucometer 277H 10/12/22 04:26: White Blood Count 6.5, Red Blood Count 5.01, Hemoglobin 14.1, Hematocrit 45, Mean Corpuscular Volume 89, Mean Corpuscular Hemoglobin 28, Mean Corpuscular Hemoglobin Concent 32, Red Cell Distribution Width 13.6, Platelet Count 177, Mean Platelet Volume 11.1, Immature Granulocyte % (Auto) 1, Neutrophils (%) (Auto) 66, Lymphocytes (%) (Auto) 20, Monocytes (%) (Auto) 10, Eosinophils (%) (Auto) 4, Basophils (%) (Auto) 1, Neutrophils # (Auto) 4.3, Lymphocytes # (Auto) 1.3, Monocytes # (Auto) 0.6, Eosinophils # (Auto) 0.2, Basophils # (Auto) 0.0, Immature Granulocyte # (Auto) 0.1, Sodium Level 137, Potassium Level 4.4, Chloride Level 103, Carbon Dioxide Level 20L, Anion Gap 14, Blood Urea Nitrogen 6L, Creatinine 0.75, Estimat Glomerular Filtration Rate 109, BUN/Creatinine Ratio 8, Glucose Level 401*H, Calcium Level 8.8, Corrected Calcium 9.0, Magnesium Level 2.0, Total Bilirubin 0.3, Aspartate Amino Transf (AST/SGOT) 38H, Alanine Aminotransferase (ALT/SGPT) 61H, Alkaline Phosphatase 94, Total Protein 6.6, Albumin 3.7 10/12/22 11:36: Glucometer 353H Patient resulted labs reviewed. Pending Labs Laboratory Tests 10/12/22 04:26: White Blood Count 6.5, Red Blood Count 5.01, Hemoglobin 14.1, Hematocrit 45, Mean Corpuscular Volume 89, Mean Corpuscular Hemoglobin 28, Mean Corpuscular Hemoglobin Concent 32, Red Cell Distribution Width 13.6, Platelet Count 177, Mean Platelet Volume 11.1, Immature Granulocyte % (Auto) 1, Neutrophils (%) (Auto) 66, Lymphocytes (%) (Auto) 20, Monocytes (%) (Auto) 10, Eosinophils (%) (Auto) 4, Basophils (%) (Auto) 1, Neutrophils # (Auto) 4.3, Lymphocytes # (Auto) 1.3, Monocytes # (Auto) 0.6, Eosinophils # (Auto) 0.2, Basophils # (Auto) 0.0, Immature Granulocyte # (Auto) 0.1, Sodium Level 137, Potassium Level 4.4, Chloride Level 103, Carbon Dioxide Level 20, Anion Gap 14, Blood Urea Nitrogen 6, Creatinine 0.75, Estimat Glomerular Filtration Rate 109, BUN/Creatinine Ratio 8, Glucose Level 401, Calcium Level 8.8, Corrected Calcium 9.0, Magnesium Level 2.0, Total Bilirubin 0.3, Aspartate Amino Transf (AST/SGOT) 38, Alanine Landry otransferase (ALT/SGPT) 61, Alkaline Phosphatase 94, Total Protein 6.6, Albumin 3.7 10/12/22 11:36: Glucometer 353 Imaging: Reviewed Imaging Report Discussion & Recommendations Discharge Planning: >30 minutes discharge planning Discharge Home Medications: Active Scripts Active Metformin HCl 500 Mg Tablet 500 Mg PO DAILY 30 Days TAKE ONE TAB DAILY FOR ONE WEEK, THEN TWO TABS DAILY, USE PALS PROGRAM Lantus Solostar (Insulin Glargine,Hum.rec.anlog) 100 Unit/Ml (3 Ml) Insuln.pen 30 Unit SQ DAILY 30 Days USE 340B [employer] Lisinopril 40 Mg Tablet 40 Mg PO DAILY 30 Days WILL USE PALS PROGRAM Reported Azo Urinary Tract Defense Tab (Methenamine/Sodium Salicylate) 162 Mg-162.5 Mg Tablet 2 Each PO DAILY Hair, Skin & Nails Caplet (Multivit-Min/Folic Acid/Biotin) 66.7 Mcg-1,000 Mcg Tablet 1 Each PO DAILY Phenylephrine HCl 10 Mg Tablet 10 Mg PO Q6H PRN Naproxen Sodium 220 Mg Capsule 880 Mg PO HS PRN TAKES 4 (220MG) CAPS Naproxen Sodium 220 Mg Capsule 880 Mg PO DAILY TAKES 4 (220MG) CAPS Instructions to patient/family Please see electronic discharge instructions given to patient. Clinical Quality Measures DVT/VTE Risk/Contraindication: Contraindications-Pharm: Other *list below* Other: bloody diarrhea Copy Copies To 1: [facility]/GUI ORTA MD 10/12/22 1906: Diagnosis/Chief Complaint Discharge Time: 12:00 Discharge Summary Discharge Physical Exam Allergies: Coded Allergies: No Known Drug Allergies (Unverified , 10/11/22) General Appearance: No Apparent Distress, Obese Respiratory: Lungs Clear, No Respiratory Distress Cardiovascular: Regular Rate, Rhythm, No Murmur Gastrointestinal: Normal Bowel Sounds, Soft Extremity: Normal Inspection, Non Tender Neurologic/Psychiatric: Alert, Oriented x3 Discussion & Recommendations Discharge Planning: >30 minutes discharge planning Copy Copies To 1: [facility] [place]-Addendum Brief Verification & Attestation Participated in pt care: history, MDM, physical Personally performed: exam, history, MDM, supervision of care Care discussed with: Medical Student Procedures: n/a Results interpretation: Verified all documentation A medical student performed and documented this service in my presence. I reviewed and verified all information documented by the medical student and made modifications to such information, when appropriate. I personally performed the physical exam and medical decision making. HUBER FERRER Oct 12, 2022 12:05 GUI IRELAND MD Oct 12, 2022 19:06
[2022-10-12 13:43] VITALS: BP 141/107
[2022-10-12] MEDS ORDERED: TROUGH ORDER-PHARMACY XX NR (18:00)
== END 2022-10-12 13:20 | disposition home or self-care (01) | DRG 638 ==
LOC: ER 01:20 → ICU 07:45
PROVIDERS: ADMIT Internal Medicine; ATTEND Internal Medicine
DX: E11.00 Type 2 diabetes mellitus with hyperosmolarity without nonketotic hyperglycemic-hyperosmolar coma (NKHHC) (principal); E66.2 Morbid (severe) obesity with alveolar hypoventilation; L03.311 Cellulitis of abdominal wall; Z68.44 Body mass index [BMI] 60.0-69.9, adult; K64.9 Unspecified hemorrhoids; B37.31 Acute candidiasis of vulva and vagina; M79.3 Panniculitis, unspecified; I10 Essential (primary) hypertension; K76.0 Fatty (change of) liver, not elsewhere classified; F17.210 Nicotine dependence, cigarettes, uncomplicated; K08.89 Other specified disorders of teeth and supporting structures; R09.02 Hypoxemia; Z28.310 Unvaccinated for COVID-19; Z79.1 Long term (current) use of non-steroidal anti-inflammatories (NSAID)
CPT/HCPCS: 36415; 36600; 74176; 80048; 80053; 81000; 82010; 82805; 82947; 83036; 83605; 83735; 84703; 85014; 85018; 85025; 85610; 85652; 85730; 86141; 87040; 87081; 87088; 93041; 94760; G0378

== ENCOUNTER → 2022-11-20 | Outpatient (CLI) | payer MEDICAID ==
[~2022-11-20] MED LIST: INSU100I10 SQ; LISI40TA9 PO; METF-397 PO; METH1TAB83 PO; MULT-1018 PO; NAPR220C61 PO; [UNRECOGNIZED DRUG - CODE] PO
--- NOTE | 2022-11-20 13:57 | Diagnostic Imaging Report ---
INDICATION: Fall with low back pain. Time of Exam: 9:41 AM Curvature and alignment of the lumbar spine is normal. Vertebral body heights and disc spaces are well-maintained. No fracture is seen. IMPRESSION: No acute bony abnormality is detected. Dictated by: Dictated on workstation # [id number]
== END ==
LOC: RAD 09:21
PROVIDERS: ATTEND Nurse Practitioner Family
DX: M54.50 Low back pain, unspecified (principal); W19.XXXA Unspecified fall, initial encounter
CPT/HCPCS: 72100